=== PATIENT | female | born 1945 | race Caucasian/White ===

== ENCOUNTER 2017-02-13 08:50 | Day surgery (SDC) | payer OTHER ==
[~2017-02-13] VITALS: Ht 160 cm; Wt 83.0 kg
[~2017-02-13 08:50] MED LIST: CALCIUM 500 MG1 EACH PO; ESSENTIAL WOMA1 EAC1 PO; GLUCOTROL XL2.5 MG PO; LEVO-T125 MCG PO; PROBIOTIC1 EAC1 PO; VITAMIN B-123000 MCG SL; VITAMIN D-32000 UNI2 PO; ZETIA10 MG PO
[2017-02-13 09:26] VITALS: BP 147/66
[2017-02-13 09:44] LABS: POINT-OF-CARE METER ID UU14174212
[2017-02-13] MEDS ORDERED: LORTAB 5-325 M1 EACH PO (13:56)
[2017-02-13 14:18] LABS: POINT-OF-CARE METER ID UU13113675
[2017-02-13 15:21] VITALS: BP 151/78
[2017-02-13 16:27] VITALS: BP 138/66
== END 2017-02-13 16:33 | disposition home or self-care (01) ==
LOC: SDC 08:50
PROVIDERS: Surgery
PROC: 0HBU0ZZ Excision of Left Breast, Open Approach (ICD-10-PCS; principal; 2017-02-13)
DX: D48.62 Neoplasm of uncertain behavior of left breast (principal); E78.5 Hyperlipidemia, unspecified; E03.9 Hypothyroidism, unspecified; I10 Essential (primary) hypertension; R73.03 Prediabetes; Z90.710 Acquired absence of both cervix and uterus; Z90.721 Acquired absence of ovaries, unilateral; Z80.0 Family history of malignant neoplasm of digestive organs; Z87.19 Personal history of other diseases of the digestive system
CPT/HCPCS: 82948; 84132; J0131; J0690; J1100; J1885; J2250; J2405; J3010; S0020